=== PATIENT | male | born 1985 | race Caucasian/White ===

== ENCOUNTER 2019-06-22 10:45 | Inpatient (IN) ==
[2019-06-22] MEDS ORDERED: *HR* Bivalirudin 250 MG VIAL IVC ONE (10:51)
[2019-06-22] MEDS ORDERED: *HR* Midazolam HCl 2 MG/2 ML VIAL ONE (10:51)
[2019-06-22] MEDS ORDERED: *HR* FentaNYL (PF) 100 MCG/2 ML VIAL ONE ×2 (10:51→12:25)
[2019-06-22] MEDS ORDERED: *HR* Heparin 5,000 UNIT/ML VIAL ONE (10:54)
[2019-06-22] MEDS ORDERED: *HR* Ticagrelor 90 MG TABLET PO ONE (10:55)
[2019-06-22] MEDS ORDERED: *HR* Ticagrelor 90 MG TABLET ONE (10:55)
[2019-06-22] MEDS ORDERED: *HR* Heparin 5,000 UNIT/ML VIAL IVP ONE (10:56)
[2019-06-22 11:14] LABS: Basophils # 0.1 K/mcL (0.0-0.2); Basophils % 0.6 %; Eosinophils # 0.5 K/mcL (0.0-0.6); Eosinophils % 3.8 %; Hematocrit 48.6 % (37.5-50.1); Hemoglobin 16.1 g/dL (12.9-16.9); Immature Granulocytes % 0.7 % (0-4); Lymphocytes # 3.7 K/mcL (0.6-4.6); Lymphocytes % 28.7 %; Mean Corpuscular HGB Conc 33.1 g/dL (31.6-35.5); Mean Corpuscular Hemoglobin 30.1 pg (28.0-33.3); Monocytes # 0.9 K/mcL (0.0-1.3); Neutrophils # 7.5 K/mcL (1.6-8.9); Platelet Count 210 K/mcL (140-400); Red Blood Count 5.34 M/mcL (4.19-5.50); Segmented Neutrophils % 59.2 %; White Blood Count 12.7 K/mcL (4.3-11.1)
[2019-06-22 11:22] LABS: Prothrombin Time 11.6 Seconds (9.4-12.1)
[2019-06-22 11:24] LABS: Activated Partial Thrombo Time 29.3 Seconds (26.0-36.0)
[2019-06-22 11:27] LABS: BUN/Creatinine Ratio 12 (6-26); Blood Urea Nitrogen 11 mg/dL (6-20); Calcium 9.2 mg/dL (8.6-10.3); Carbon Dioxide 24 mEq/L (23-29); Chloride 106 mEq/L (98-107); Glucose 146 mg/dL (70-105); Osmolality,Calculated 284 (280-300); Potassium 3.6 mEq/L (3.5-5.1); Sodium 136 mEq/L (136-145); eGFR For African Americans > 60 (> 60); eGFR For Non-African Americans > 60 (> 60)
[2019-06-22] MEDS ORDERED: Nitroglycerin 1,000 MCG/10 ML VIAL IV ONE ×2 (11:27→11:47)
[2019-06-22] MEDS ORDERED: Isovue-300 200 mL Infus..BTL ONE (11:27)
[2019-06-22 11:30] LABS: Troponin I 0.22 ng/mL (< 0.04)
[2019-06-22] MEDS ORDERED: ISOVUE-370 200 ML INFUS..BTL ONE (11:47)
[2019-06-22] MEDS ORDERED: Heparin 1,000 UNITS/500 mL 500 ML ONE (11:47)
[2019-06-22] MEDS ORDERED: 0.9 % Sodium Chloride 1,000 ML ONE (11:47)
[2019-06-22] MEDS ORDERED: *HR* Heparin 10,000 UNIT/10 ML VIAL ONE (11:47)
[2019-06-22] MEDS ORDERED: Acetaminophen 325 MG TABLET PO PRN (12:08)
[2019-06-22] MEDS ORDERED: Ondansetron 4 MG/2 ML VIAL IVP PRN (12:08)
[2019-06-22] MEDS ORDERED: Nitroglycerin 0.4 MG TAB.SUBL SL PRN (12:08)
[2019-06-22] MEDS ORDERED: 0.9 % Sodium Chloride 1,000 ML IVC SCH (12:15)
[2019-06-22] MEDS ORDERED: Ondansetron 4 MG/2 ML VIAL ONE (12:25)
[2019-06-22] MEDS ORDERED: Perflutren Lipid Microsphere 1.3 ML in 0.9 % Sodium Chloride 8.7 ML IVP ONE (15:12)
[2019-06-22] MEDS ORDERED: *HR* Atropine Sulfate 1 MG/10 ML SYRINGE ONE (17:00)
[2019-06-22] MEDS: *HR* Heparin 5,000 UNIT/ML VIAL SQ SCH (19:32)
[2019-06-22 20:26] LABS: Estimated Average Glucose 120 mg/dl
[2019-06-22 20:45] LABS: Troponin I 30.13 ng/mL (< 0.04)
[2019-06-22 21:00] LABS: Thyroid Stimulating Hormone 0.959 mcIU/mL (0.340-5.600)
[2019-06-22] MEDS ORDERED: *HR* Promethazine 25 MG/ML VIAL IVP PRN (22:33)
[2019-06-23 04:52] LABS: Basophils % 0.2 %; Eosinophils # 0.1 K/mcL (0.0-0.6); Eosinophils % 0.4 %; Hematocrit 43.9 % (37.5-50.1); Immature Granulocytes % 0.4 % (0-4); Lymphocytes # 3.3 K/mcL (0.6-4.6); Lymphocytes % 20.5 %; Mean Corpuscular HGB Conc 32.8 g/dL (31.6-35.5); Mean Corpuscular Hemoglobin 30.2 pg (28.0-33.3); Mean Platelet Volume 11.4 fL (9.4-12.4); Monocytes # 1.1 K/mcL (0.0-1.3); Monocytes % 6.8 %; Neutrophils # 11.5 K/mcL (1.6-8.9); Platelet Count 200 K/mcL (140-400); Red Blood Count 4.77 M/mcL (4.19-5.50); Red Cell Distribution Width 14.1 % (11.5-14.5); Segmented Neutrophils % 71.7 %
[2019-06-23 04:55] LABS: Hemoglobin 14.4 g/dL (12.9-16.9)
[2019-06-23 05:16] LABS: Troponin I 41.15 ng/mL (< 0.04)
[2019-06-23 05:17] LABS: BUN/Creatinine Ratio 14 (6-26); Blood Urea Nitrogen 10 mg/dL (6-20); Calcium 9.1 mg/dL (8.6-10.3); Carbon Dioxide 20 mEq/L (23-29); Chloride 105 mEq/L (98-107); Chol/HDL Ratio 5.1 (0-4.9); Cholesterol 162 mg/dL (< 200); Glucose 116 mg/dL (70-105); HDL Cholesterol 32 mg/dL (40-59); LDL Cholesterol,Calculated 113 mg/dL (0-99); Osmolality,Calculated 282 (280-300); Potassium 4.1 mEq/L (3.5-5.1); Sodium 136 mEq/L (136-145); Triglycerides 86 mg/dL (< 150); eGFR For African Americans > 60 (> 60); eGFR For Non-African Americans > 60 (> 60)
[2019-06-23] MEDS: *HR* Heparin 5,000 UNIT/ML VIAL SQ SCH ×2 (06:11→16:42)
[2019-06-23] MEDS: Nicotine 14 MG PATCH.TD24 TD SCH ×2 (08:39→08:53)
[2019-06-23] MEDS ORDERED: Aspirin 81 MG TAB.CHEW PO SCH (09:00)
[2019-06-23] MEDS ORDERED: *HR* Promethazine 25 MG/ML VIAL IVP PRN (09:51)
[2019-06-23] MEDS ORDERED: Nitroglycerin 0.4 MG TAB.SUBL SL PRN (09:51)
[2019-06-23] MEDS ORDERED: Acetaminophen 325 MG TABLET PO PRN (09:51)
[2019-06-23] MEDS ORDERED: Ondansetron 4 MG/2 ML VIAL IVP PRN (09:51)
[2019-06-23 10:01] LABS: Magnesium 1.9 mg/dL (1.6-2.6)
[2019-06-24] MEDS: *HR* Heparin 5,000 UNIT/ML VIAL SQ SCH (06:31)
[2019-06-24 07:50] VITALS: BP 117/87
[2019-06-24] MEDS ORDERED: Aspirin 81 MG TAB.CHEW PO SCH (09:00)
[2019-06-24] MEDS ORDERED: Nicotine 14 MG PATCH.TD24 TD SCH (09:00)
== END 2019-06-24 12:05 | disposition home or self-care (01) | DRG 174 ==
LOC: EMEROOARM 10:45 → ICNU 10:54 → 2NNU 06-23 13:53
PROVIDERS: ADMIT Internal Medicine Interventional Cardiology; ATTEND Internal Medicine Interventional Cardiology